=== PATIENT | female | born 1975 | race Caucasian/White ===

== ENCOUNTER 2016-12-05 17:25 | Emergency (ER) | payer BC ==
[~2016-12-05 17:25] MED LIST: BIRTH CONTROL
[2016-12-05 18:29] VITALS: BP 122/75
--- NOTE | 2016-12-05 18:35 | PHYS DOC ---
Past Medical History Past Medical History: No Pertinent History Past Surgical History: Cholecystectomy Smoking: Cigarettes Alcohol Use: None Drug Use: None Adult General Chief Complaint Chief Complaint: LOWER EXTREMITY EDEMA HPI HPI Patient is a 41 year old FEMALE who presents with left lower leg pain and swelling. She said "My doctor sent me in her for an ultrasound." She states that on 11/25/16 she developed a blister on the back of her left heel after playing volleyball. She went into an Urgent Care and they opened it. Since then she has had pain in her left mid calf. She just finished her course of doxycycline today. No recent travel. She does smoke tobacco and takes control pills. No chest pain, No SOA. Review of Systems Review of Systems Respiratory: Denies cough or shortness of breath Cardiovascular: No chest pain Musculoskeletal: see HPI Integument: Denies rash. Blister now resolved. Allergies Allergies Allergies Coded Allergies Type Severity Reaction Last Updated Verified cefaclor Allergy Severe Hives 04/11/14 Yes Physical Exam Physical Exam Constitutional: Well developed, well nourished, no acute distress, non-toxic appearance. HENT: Normocephalic, atraumatic, bilateral external ears normal, oropharynx moist, no oral exudates, nose normal. Eyes: PERRLA, EOMI, conjunctiva normal, no discharge. Neck: Normal range of motion, no tenderness, supple, no stridor. Cardiovascular:Heart rate regular rhythm, no murmur Lungs & Thorax: Bilateral breath sounds clear to auscultation Abdomen: Bowel sounds normal, soft, no tenderness, no masses, no pulsatile masses. Skin: Warm, dry, no erythema, no rash. Back: No tenderness, no CVA tenderness. Extremities: Left lower leg: healing skin wound on back of heel over achilles area. No drainage; no erythema. No lymphangitis. Distal posterior 1/3 there is an area of tenderness; no palpable cord. No masses palpable. NVI distally. Normal pulse. Neurologic: Alert and oriented X 3, normal motor function, normal sensory function, no focal deficits noted. Psychologic: Affect normal, judgement normal, mood normal. Current Patient Data Vital Signs Vital Signs Date Time Temp Pulse Resp B/P (MAP) Pulse Ox O2 Delivery O2 Flow Rate FiO2 12/05/16 18:29 98.2 91 18 98 Room Air 98.2 Radiology/Procedures Radiology/Procedures [facility] [address] [place] [address] IMAGING REPORT Signed PATIENT: ADEEL BREWER ACCOUNT: [id number] : 1975 LOCATION: ER AGE: 41 SEX: F EXAM STATUS: DEP ER ORD. PHYSICIAN: MINESH MCRAE MD REASON: PAINFUL; BCP WITH TOB USE; CALF PAIN AND SWELLING PROCEDURE: VENOUS LOWER EXTREMITY LEFT Left Lower Extremity Venous Doppler Ultrasound Indication: Left ankle swelling, pain. Comparison: None. Procedure: Color Doppler, spectral Doppler, and grayscale images with and without compression are obtained in the area of the common femoral vein, superficial femoral vein - femoral vein junction, main femoral vein (superficial femoral vein) and popliteal vein. Veins of the proximal calf are also imaged. Findings: There is normal duplex flow, color flow and compressibility of all visualized vein segments. There is no evidence of deep venous thrombosis. Impression: No evidence of left lower extremity deep venous thrombosis. Electronically signed by: Giovanny Nunez MD (12/05/2016 8:18 PM) [facility] DICTATED and SIGNED BY: GIOVANNY NUNEZ MD DATE: 12/05/162016 CC: MINESH MCRAE MD ~ Course & Med Decision Making Course & Med Decision Making Evaluated patient. US ordered to r/o DVT. At 1930 PM: US Negative for DVT. I have spoken with the patient and/or caregivers. I have explained the patient' s condition, diagnosis and treatment plan based on the information available to me at this time. I have answered the patient's and/or caregiver's questions and addressed any concerns. The patient and/or caregivers have as good an understanding of the patient's diagnosis, condition and treatment plan as can be expected at this point. The patient's condition is stable and appropriate for discharge from the emergency department. The patient will pursue further outpatient evaluation with the primary care physician or other designated or consulting physician as outlined in the discharge instructions. The patient and/or caregivers are agreeable to this plan of care and follow-up instructions have been explained in detail. The patient and/or caregivers have received these instructions in written format and have expressed an understanding of the discharge instructions. The patient and/or caregivers are aware that any significant change in condition or worsening of symptoms should prompt an immediate return to this or the closest emergency department or a call to 911. Frances Disclaimer Dragon Disclaimer This electronic medical record was generated, in whole or in part, using a voice recognition dictation system. Departure Departure Impression: Primary Impression: Left leg pain Disposition: HOME, SELF-CARE Condition: STABLE Patient Instructions: Leg Cramps Additional Instructions: YOUR ULTRASOUND WAS NEGATIVE FOR DVT. MINESH MCRAE MD Dec 05, 2016 18:35
--- NOTE | 2016-12-05 20:22 | RAD ---
Left Lower Extremity Venous Doppler Ultrasound Indication: Left ankle swelling, pain. Comparison: None. Procedure: Color Doppler, spectral Doppler, and grayscale images with and without compression are obtained in the area of the common femoral vein, superficial femoral vein - femoral vein junction, main femoral vein (superficial femoral vein) and popliteal vein. Veins of the proximal calf are also imaged. Findings: There is normal duplex flow, color flow and compressibility of all visualized vein segments. There is no evidence of deep venous thrombosis. Impression: No evidence of left lower extremity deep venous thrombosis. Electronically signed by: Giovanny Nunez MD (12/05/2016 8:18 PM) [facility]
== END 2016-12-05 19:48 | disposition home or self-care (01) ==
LOC: ER 17:25
DX: M79.605 Pain in left leg (principal); M79.89 Other specified soft tissue disorders; F17.210 Nicotine dependence, cigarettes, uncomplicated; Z88.8 Allergy status to other drugs, medicaments and biological substances
CPT/HCPCS: 93971; 99284-25